=== PATIENT | female | born 1980 | race Two or more races ===

== ENCOUNTER 2019-02-09 03:44 | Emergency (ER) | payer MEDICAID ==
[~2019-02-09] VITALS: Ht 162.6 cm; Wt 59.0 kg
--- NOTE | 2019-02-09 04:05 | NUR ---
To room 2A; seen and evaluated by Dr. Gray.
[2019-02-09] MEDS ORDERED: HYDROMORPHONE 1 MG/1 ML DISP.SYRIN ONE ×2 (04:14→05:33)
[2019-02-09] MEDS ORDERED: ONDANSETRON 4 MG/2 ML VIAL ONE ×2 (04:14→05:34)
[2019-02-09] MEDS ORDERED: ONDANSETRON 4 MG/2 ML VIAL IV ONE (04:15)
[2019-02-09] MEDS ORDERED: HYDROMORPHONE 1 MG/1 ML DISP.SYRIN IV ONE ×2 (04:15→05:30)
[2019-02-09] MEDS ORDERED: IV NORMAL SALINE 1000 ML BAG IV ONE (04:15)
[2019-02-09 04:21] LABS: BASOPHILS % (AUTO) 0.4 % (0.0-2.0); EOSINOPHILS % (AUTO) 0.4 % (0.0-7.0); HEMATOCRIT 37.5 % (31.2-41.9); HEMOGLOBIN 13.2 g/dL (10.9-14.3); LYMPHOCYTES # (AUTO) 1.3 K/uL (20.0-40.0); LYMPHOCYTES % (AUTO) 21.3 % (20.5-51.5); MEAN CORPUSCULAR HEMOGLOBIN 32.7 uug (24.7-32.8); MEAN CORPUSCULAR HGB CONC 35 g/dL (32.3-35.6); MEAN CORPUSCULAR VOLUME 92.8 fL (75.5-95.3); MONOCYTES # (AUTO) 0.4 K/uL (2.0-10.0); MONOCYTES % (AUTO) 6.9 % (0.0-11.0); NEUTROPHILS # (AUTO) 4.5 K/uL (1.8-8.9); PLATELET COUNT (AUTO) 216 K/uL (179-408); RED BLOOD CELL COUNT(AUTO) 4.04 MIL/uL (3.63-4.92); WHITE BLOOD COUNT (AUTO) 6.3 K/uL (3.8-11.8)
[2019-02-09 04:25] LABS: CARBON DIOXIDE 26 mmol/L (21-32); CHLORIDE 103 mmol/L (98-107); CREATININE 0.6 mg/dL (0.6-1.3); GLUCOSE 85 mg/dL (74-106); POTASSIUM 3.1 mmol/L (3.5-5.1); UREA NITROGEN, BLOOD 14 mg/dL (7-18)
[2019-02-09 04:31] LABS: ALANINE AMINOTRANSFERASE 20 U/L (14-59); ALKALINE PHOSPHATASE 64 U/L (50-136); ASPARTATE AMINOTRANSFERASE 12 U/L (15-37); BILIRUBIN,DIRECT 0.2 mg/dL (0.0-0.2); BILIRUBIN,TOTAL 0.6 mg/dL (0.2-1.0); LIPASE 82 U/L (73-393); TOTAL PROTEIN, SERUM 7.2 g/dL (6.4-8.2)
--- NOTE | 2019-02-09 05:02 | NUR ---
To Xray. Still with nausea on and off.
--- NOTE | 2019-02-09 05:20 | NUR ---
Back from Xray.
[2019-02-09] MEDS ORDERED: ONDANSETRON IV *ER 4 MG/2 ML VIAL IV ONE (05:30)
--- NOTE | 2019-02-09 05:30 | NUR ---
Still with sharp, throbbing L shoulder pain and nausea. ERMD informed. Medicated with IV Zofran and Dilaudid.
--- NOTE | 2019-02-09 05:40 | NUR ---
Dr. Gray discussed with patient result of shoulder xray.
--- NOTE | 2019-02-09 06:00 | NUR ---
Ambulated to the BR without problems.
--- NOTE | 2019-02-09 06:10 | NUR ---
Dr. Gray talked to patient re: results of CT scan.
--- NOTE | 2019-02-09 06:25 | NUR ---
Patient discharged to home in stable conditon. Prescription, written and verbal after care instructions given. Patient verbalizes understanding of instructions.
[2019-02-09 06:29] VITALS: BP 122/70
== END 2019-02-09 06:25 | disposition home or self-care (01) ==
LOC: ER 03:46
DX: M25.512 Pain in left shoulder (principal); R10.13 Epigastric pain; R11.2 Nausea with vomiting, unspecified; F17.200 Nicotine dependence, unspecified, uncomplicated; F12.10 Cannabis abuse, uncomplicated; Z88.8 Allergy status to other drugs, medicaments and biological substances; Z90.49 Acquired absence of other specified parts of digestive tract
CPT/HCPCS: 36415; 73030; 74176; 80048; 80076; 83690; 84702; 85025; 96361; 96374; 96375; 96376; 99284; J1170 ×2; J2405 ×2; A4663; J7030

== ENCOUNTER 2019-03-17 23:12 | Emergency (ER) | payer MEDICAID ==
[~2019-03-17] VITALS: Ht 162.6 cm; Wt 59.0 kg
[2019-03-18] MEDS ORDERED: HYDROMORPHONE 1 MG/1 ML DISP.SYRIN IV ONE
[2019-03-18] MEDS ORDERED: ONDANSETRON 4 MG/2 ML VIAL IV ONE
[2019-03-18] MEDS ORDERED: IV NORMAL SALINE 1000 ML BAG IV ONE
[2019-03-18] MEDS ORDERED: HYDROMORPHONE 1 MG/1 ML DISP.SYRIN ONE ×2 (00:05→00:27)
[2019-03-18] MEDS ORDERED: ONDANSETRON 4 MG/2 ML VIAL ONE (00:05)
[2019-03-18 00:11] LABS: BASOPHILS % (AUTO) 0.6 % (0.0-2.0); EOSINOPHILS # (AUTO) 0.1 K/uL (0.0-0.7); HEMATOCRIT 38.9 % (31.2-41.9); HEMOGLOBIN 13.6 g/dL (10.9-14.3); LYMPHOCYTES # (AUTO) 1.5 K/uL (20.0-40.0); LYMPHOCYTES % (AUTO) 22.1 % (20.5-51.5); MEAN CORPUSCULAR HEMOGLOBIN 33.2 uug (24.7-32.8); MEAN CORPUSCULAR HGB CONC 35 g/dL (32.3-35.6); MEAN CORPUSCULAR VOLUME 94.6 fL (75.5-95.3); MONOCYTES # (AUTO) 0.5 K/uL (2.0-10.0); MONOCYTES % (AUTO) 7.9 % (0.0-11.0); NEUTROPHILS # (AUTO) 4.7 K/uL (1.8-8.9); NEUTROPHILS % (AUTO) 68.4 % (38.5-71.5); PLATELET COUNT (AUTO) 214 K/uL (179-408); RED BLOOD CELL COUNT(AUTO) 4.11 MIL/uL (3.63-4.92); WHITE BLOOD COUNT (AUTO) 6.9 K/uL (3.8-11.8)
[2019-03-18 00:13] LABS: *BLOOD, URINE 3+ (NEGATIVE); *CLARITY,URINE CLOUDY (CLEAR); *COLOR,URINE YELLOW (YELLOW); *KETONES,URINE 1+ (NEGATIVE); *UROBILINOGEN,URINE 0.2 E.U./dl (NORMAL); LEUKOCYTE ESTERASE ,URINE TRACE (NEGATIVE); NITRITE, URINE NEGATIVE (NEGATIVE); UGLUCOSE NEGATIVE (NEGATIVE)
[2019-03-18 00:15] LABS: *BILIRUBIN,URIN 1+ (NEGATIVE)
--- NOTE | 2019-03-18 00:15 | NUR ---
Pt ambulated in ER with stable gait for the c/o dysuria, hematuria and nausea. Pt A/O x 4 and speaking in complete sentences. Safe environment implemented. Pt placed on monitor.
[2019-03-18 00:25] LABS: CREATININE 0.9 mg/dL (0.6-1.3); POTASSIUM 3.2 mmol/L (3.5-5.1)
[2019-03-18] MEDS ORDERED: METOCLOPRAMIDE HCL 10 MG/2 ML VIAL IV ONE (00:30)
[2019-03-18 00:31] LABS: BILIRUBIN,DIRECT 0.2 mg/dL (0.0-0.2); BILIRUBIN,TOTAL 0.8 mg/dL (0.2-1.0); TOTAL PROTEIN, SERUM 7.1 g/dL (6.4-8.2)
--- NOTE | 2019-03-18 00:31 | NUR ---
US tech at bedside.
[2019-03-18] MEDS ORDERED: METOCLOPRAMIDE HCL 10 MG/2 ML VIAL ONE (00:32)
[2019-03-18 00:41] LABS: *URINE HCG, QUAL NEGATIVE (NEGATIVE); BACTERIA,URINE MODERATE /HPF (NONE SEEN); MUCUS,URINE MANY /LPF (0-FEW); RBC,URINE 50-80 /HPF (0-3); SQUAMOUS EPITHELIAL CELL,UR MANY /HPF (NONE SEEN)
[2019-03-18] MEDS ORDERED: CEFTRIAXONE 1 G in IV DEXTROSE 5% 50 ML IV ONE (01:00)
[2019-03-18] MEDS ORDERED: NITROFURANTOIN/NITROFURAN MAC 100 MG CAPSULE PO ONE (01:00)
[2019-03-18] MEDS ORDERED: CEFTRIAXONE 1 G VIAL ONE (01:11)
[2019-03-18] MEDS ORDERED: NITROFURANTOIN/NITROFURAN MAC 100 MG CAPSULE ONE (01:11)
--- NOTE | 2019-03-18 01:54 | NUR ---
Pt pending discharge at this time, awaiting IV abx to finish infusing.
--- NOTE | 2019-03-18 02:15 | NUR ---
IV removed. Catheter intact and site benign. Pressure and 4x4 gauze applied to site. No bleeding noted.Patient discharged to home in stable conditon. Written and verbal after care instructions given. Patient verbalizes understanding of instructions.
[2019-03-18 02:16] VITALS: BP 124/68
== END 2019-03-18 02:15 | disposition home or self-care (01) ==
LOC: ER 23:12
DX: G89.29 Other chronic pain (principal); R10.9 Unspecified abdominal pain; N02.9 Recurrent and persistent hematuria with unspecified morphologic changes; F12.10 Cannabis abuse, uncomplicated; F17.290 Nicotine dependence, other tobacco product, uncomplicated; Z71.6 Tobacco abuse counseling; Z88.8 Allergy status to other drugs, medicaments and biological substances; Z91.013 Allergy to seafood; Z90.49 Acquired absence of other specified parts of digestive tract
CPT/HCPCS: 36415; 76770; 80048; 80076; 81001; 83690; 84703; 85025; 87086; 96361; 96365; 96375; 99284; 99406; J0696; J1170; J2405; J2765; J7060; A4663; J7030

== ENCOUNTER 2021-07-21 11:39 | Emergency (ER) | payer MEDICAID ==
[~2021-07-21] VITALS: Ht 162.6 cm; Wt 56.7 kg
[2021-07-21 12:07] LABS: HEMATOCRIT 38.5 % (31.2-41.9); MEAN CORPUSCULAR HEMOGLOBIN 33.6 uug (24.7-32.8); MEAN CORPUSCULAR VOLUME 95.9 fL (75.5-95.3); PLATELET COUNT (AUTO) 192 K/uL (179-408)
[2021-07-21 12:18] LABS: BILIRUBIN,DIRECT 0.1 mg/dL (0.0-0.2); BILIRUBIN,TOTAL 0.5 mg/dL (0.2-1.0); TOTAL PROTEIN, SERUM 7.6 g/dL (6.4-8.2)
[2021-07-21 12:21] LABS: *BILIRUBIN,URIN NEGATIVE (NEGATIVE); *BLOOD, URINE 3+ (NEGATIVE); *CLARITY,URINE CLEAR (CLEAR); *COLOR,URINE YELLOW (YELLOW); *KETONES,URINE NEGATIVE (NEGATIVE); *UROBILINOGEN,URINE 0.2 E.U./dl (NORMAL); LEUKOCYTE ESTERASE ,URINE 1+ (NEGATIVE); NITRITE, URINE NEGATIVE (NEGATIVE); PH,URINE 6.5 (5.0-8.0); UGLUCOSE NEGATIVE (NEGATIVE)
[2021-07-21] MEDS ORDERED: IV NORMAL SALINE 1000 ML BAG IV ONE (12:30)
[2021-07-21] MEDS ORDERED: ONDANSETRON 4 MG/2 ML VIAL IV ONE (12:30)
[2021-07-21] MEDS ORDERED: MORPHINE SULFATE 4 MG/1 ML DISP.SYRIN IV ONE (12:30)
[2021-07-21] MEDS ORDERED: ONDANSETRON 4 MG/2 ML VIAL ONE (12:48)
[2021-07-21] MEDS ORDERED: MORPHINE SULFATE 4 MG/1 ML DISP.SYRIN ONE (12:48)
[2021-07-21 12:53] LABS: CREATININE 0.6 mg/dL (0.6-1.3); POTASSIUM 4.2 mmol/L (3.5-5.1)
[2021-07-21] MEDS ORDERED: DICY10CA13 PO (12:55)
[2021-07-21] MEDS ORDERED: ONDA4TAB5 PO (12:59)
--- NOTE | 2021-07-21 13:00 | NUR ---
Patient discharged to home in stable condition. Written and verbal after care instructions given. Patient verbalizes understanding of instructions. Stressed follow up or return to ER for worsening s/s.pt walks in steady gait.
[2021-07-21 13:38] VITALS: BP 131/75
[2021-07-21 14:28] LABS: BACTERIA,URINE MODERATE /HPF (NONE SEEN)
[2021-07-21 14:29] LABS: SQUAMOUS EPITHELIAL CELL,UR MANY /HPF (NONE SEEN); URINE AMORPHOUS URATE FEW /HPF
== END 2021-07-21 13:00 | disposition home or self-care (01) ==
LOC: ER 11:39
DX: R10.9 Unspecified abdominal pain (principal); G89.29 Other chronic pain; M54.9 Dorsalgia, unspecified; Z88.6 Allergy status to analgesic agent; Z88.1 Allergy status to other antibiotic agents; Z91.013 Allergy to seafood; Z87.891 Personal history of nicotine dependence
CPT/HCPCS: 36415; 76770; 80048; 80076; 81001; 83690; 84702; 85025; 87086; 96374; 96375; 99284; J2270; J2405; A4663; J7030